=== PATIENT | male | born 1980 | race Caucasian/White ===

== ENCOUNTER 2019-06-17 02:41 | Emergency (ER) | payer BC ==
[~2019-06-17] VITALS: Ht 172.7 cm; Wt 109.1 kg
[2019-06-17 02:45] VITALS: Ht 172.7 cm; Wt 109.1 kg
[2019-06-17] MEDS ORDERED: DUEXIS 800-26.1 EACH PO (02:47)
[2019-06-17 03:10] LABS: BASOPHILS 0.2 % (0-2); EOSINOPHILS 2.5 % (0-7); HEMOGLOBIN 13.9 g/dL (13.5-17.5); IMMATURE GRANULOCYTES 0.4 % (0-5); LYMPHOCYTES 42.5 % (15-50); MCH 30.7 pg (26.0-34.0); MCHC 33.1 g/dL (31.0-37.0); MCV 92.7 fL (80.0-100.0); MEAN PLATELET VOLUME 9.9 fL (7.4-10.4); MONOCYTES 8.3 % (2-11); NEUTROPHILS 46.1 % (40-80); PLATELET COUNT 220 10x3/uL (130-400); RBC 4.53 10x6/uL (4.20-6.10); WBC 8.3 10x3/uL (4.8-10.8)
[2019-06-17 03:17] LABS: CALC OSMOLALITY 289 mosm/kg (275-300); CARBON DIOXIDE 28.6 mmol/L (21.0-32.0); CHLORIDE - SERUM 107 mmol/L (98-107); CREATININE - SERUM 1.3 mg/dL (0.6-1.3); GLUCOSE 137 mg/dL (74-106); POTASSIUM - SERUM 3.6 mmol/L (3.5-5.1); SODIUM 143 mmol/L (136-145); UREA NITROGEN 22 mg/dL (7-18); eGFR NON AFRICAN AMERICAN 65 mL/min (90-120)
[2019-06-17 03:25] LABS: ALBUMIN 3.7 g/dL (3.4-5.0); ALKALINE PHOSPHATASE 97 U/L (46-116); ALT (SGPT) 27 U/L (10-68); AMYLASE - SERUM 55 U/L (25-115); BILIRUBIN - TOTAL 0.16 mg/dL (0.2-1.3); LIPASE 143 U/L (73-393); PROTEIN - SERUM 7.6 g/dL (6.4-8.2)
[2019-06-17 03:26] LABS: TROPONIN-I < 0.017 ng/mL (0.000-0.060)
[2019-06-17 04:50] LABS: APPEARANCE CLEAR (CLEAR); BILIRUBIN NEGATIVE (NEGATIVE); COLOR YELLOW (YELLOW); GLUCOSE NEGATIVE (NEGATIVE); KETONE NEGATIVE (NEGATIVE); NITRITE NEGATIVE (NEGATIVE); PROTEIN 1+ mg/dL (NEGATIVE); UROBILINOGEN NORMAL (NORMAL)
[2019-06-17 04:53] LABS: BACTERIA FEW /hpf (NEGATIVE); EPITHELIAL CELLS 0-5 /hpf (0-5); MUCUS <1+ /lpf (NONE SEEN); RED CELLS - URINE 0-5 /hpf (0-5); WHITE CELLS - URINE 0-5 /hpf (NEGATIVE)
[2019-06-17] MEDS ORDERED: AUGMENTIN 875-11 TAB PO (06:21)
[2019-06-17] MEDS ORDERED: ZOFRAN ODT4 MG/UDTAB PO (06:21)
[2019-06-17] MEDS ORDERED: MECLIZINE HCL25 MG PO (06:21)
[2019-06-17 06:52] VITALS: BP 123/84
== END 2019-06-17 06:53 | disposition home or self-care (01) ==
LOC: D.ER 02:41
PROVIDERS: Family Medicine
DX: R42 Dizziness and giddiness (principal); R11.10 Vomiting, unspecified; J32.9 Chronic sinusitis, unspecified